=== PATIENT | female | born 1960 | race Caucasian/White ===

== ENCOUNTER 2017-06-11 13:56 | Emergency (ER) | payer BC, OTHER ==
[~2017-06-11] VITALS: Ht 167.6 cm; Wt 52.3 kg
[2017-06-11] MEDS ORDERED: MEDR4PAK PO (15:41)
[2017-06-11 15:58] VITALS: BP 102/57
== END 2017-06-11 15:59 | disposition home or self-care (01) ==
LOC: M ED 13:56
DX: L50.0 Allergic urticaria (principal); F17.210 Nicotine dependence, cigarettes, uncomplicated

== ENCOUNTER 2017-06-13 04:54 | Emergency (ER) | payer BC, OTHER ==
[~2017-06-13] VITALS: Ht 167.6 cm; Wt 52.0 kg
[~2017-06-13 04:54] MED LIST: MEDR4PAK PO
[2017-06-13] MEDS ORDERED: diphenhydrAMINE INJ 50MG/ML VIAL (J1200) IM STA (05:11)
[2017-06-13 06:03] VITALS: BP 104/54
== END 2017-06-13 06:05 | disposition home or self-care (01) ==
LOC: M ED 04:54
DX: R21 Rash and other nonspecific skin eruption (principal); F17.210 Nicotine dependence, cigarettes, uncomplicated; Z79.52 Long term (current) use of systemic steroids
CPT/HCPCS: 96372; 99283; J1200

== ENCOUNTER 2019-02-25 22:59 | Emergency (ER) | payer BC, OTHER ==
[~2019-02-25] VITALS: Ht 167.6 cm; Wt 52.3 kg
[2019-02-25] MEDS ORDERED: SOMA350T PO (23:26)
[2019-02-25] MEDS ORDERED: NAPR-837 PO (23:26)
[2019-02-25] MEDS ORDERED: diazePAM 10 MG TAB PO ONE (23:30)
[2019-02-25] MEDS ORDERED: KETOROLAC 60 MG/2 ML VIAL (J1885) IM ONE (23:30)
[2019-02-26 00:28] VITALS: BP 153/67
== END 2019-02-26 00:29 | disposition home or self-care (01) ==
LOC: M ED 22:59
DX: S39.012A Strain of muscle, fascia and tendon of lower back, initial encounter (principal); X50.1XXA Overexertion from prolonged static or awkward postures, initial encounter; Y92.099 Unspecified place in other non-institutional residence as the place of occurrence of the external cause; Y93.89 Activity, other specified; Y99.9 Unspecified external cause status
CPT/HCPCS: 96374; 99283; J1885

== ENCOUNTER → 2019-05-18 | Outpatient (CLI) | payer BC, OTHER ==
[~2019-05-18] MED LIST changes: +NAPR-837 PO; +SOMA350T PO
--- NOTE | 2019-05-18 12:41 | REP ---
MRI lumbar spine: 05/18/2019. Indication: Low back pain. Comparison: None. Technique: Short and long TR sequences of the lumbar spine were obtained without IV Gadolinium. Findings: There is straightening of the lumbar lordosis. There is dextroscoliosis of the lumbar spine with the convexity centered at L3/L4. Grade 1 retrolisthesis of L2 on L3, L3 on L4 and L4 on L5 are present. Endplate degenerative signal changes are present. No worrisome marrow signal is detected. The visualized cord is unremarkable. No significant paraspinal soft tissue abnormalities are detected. L1/L2: There is no disc herniation or significant spinal canal / neural foraminal narrowing. L2/L3: Disc and spur complex is present diffusely, most apparent anteriorly with mild spinal canal and neural foraminal narrowing. Bilateral mild facet arthropathy is present. L3/L4: Diffuse disc bulge is present with bilateral facet arthropathy and moderate bilateral lateral recess narrowing. Mild to moderate bilateral neural foraminal narrowing is present. L4/L5: Diffuse disc bulge and bilateral facet arthropathy are present with moderate to severe right and moderate left recess narrowing. There is moderate left neural foraminal narrowing. L5/S1: New mild diffuse disc bulge is present without significant spinal canal or neural foraminal narrowing. Impression: Multilevel degenerative sequelae, scoliosis and spondylolisthesis as described. There is no severe narrowing of the spinal canal. Electronically Signed by Urban Strickland DO 05/18/2019 12:32 P
== END ==
LOC: M RAD 10:27
PROVIDERS: ATTEND Internal Medicine
DX: M51.26 Other intervertebral disc displacement, lumbar region (principal); M43.16 Spondylolisthesis, lumbar region; M41.86 Other forms of scoliosis, lumbar region

== ENCOUNTER 2023-06-02 21:11 | Emergency (ER) | payer BC, OTHER ==
[~2023-06-02] VITALS: Ht 167.6 cm; Wt 43.9 kg
[2023-06-02] MEDS ORDERED: MORPHINE 4 MG/ML 1ML VIAL IV ONE (22:10)
[2023-06-02] MEDS ORDERED: NS 1,000 ML IV ONE (22:10)
[2023-06-02 22:41] LABS: BASO # 0.1 10^3/uL (0.0-0.2); BASO % 0.7 % (0.0-1.0); EOS # 0.2 10^3/uL (0.0-0.5); EOS % 1.3 % (0.0-3.0); HEMATOCRIT 34.2 % (36.0-47.0); HEMOGLOBIN 11.2 g/dl (12.0-15.5); LYMPH # 1.4 10^3/uL (1.5-5.0); LYMPH % 11.7 % (24.0-44.0); MEAN CORPUSCULAR HEMOGLOBIN 31.5 pg (27.0-33.0); MEAN CORPUSCULAR HGB CONC 32.7 g/dl (32.0-36.5); MEAN CORPUSCULAR VOLUME 96.1 fl (80.0-96.0); MONO # 0.4 10^3/uL (0.0-0.8); NEUTROPHILS # 9.7 10^3/uL (1.5-8.5); NEUTROPHILS % 82.8 % (36.0-66.0); PLATELET COUNT, AUTOMATED 290 10^3/uL (150-450); RED BLOOD COUNT 3.56 10^6/uL (4.00-5.40); WHITE BLOOD COUNT 11.7 10^3/uL (4.0-10.0)
[2023-06-02] MEDS ORDERED: ISOVUE-370 76% 100ML VIAL As Ordered ONE (23:32)
[2023-06-02 23:41] LABS: ALKALINE PHOSPHATASE 71 U/L (46-116); ALT/SGPT 15 U/L (7.0-40); AST/SGOT 17 U/L (<34); BILIRUBIN,DIRECT < 0.1 MG/DL (<0.4); BILIRUBIN,TOTAL 0.2 MG/DL (0.3-1.2); TOTAL PROTEIN 6.6 G/DL (5.7-8.2)
[2023-06-02 23:56] VITALS: BP 124/76; TEMP 98.1; O2SAT 99
== END 2023-06-03 01:41 | disposition home or self-care (01) ==
LOC: M ED 21:11
DX: K41.90 Unilateral femoral hernia, without obstruction or gangrene, not specified as recurrent (principal); F17.200 Nicotine dependence, unspecified, uncomplicated
CPT/HCPCS: 74177; 80047; 80076; 81001; 83605; 85025; 96374; 99283; Q9967

== ENCOUNTER 2023-08-29 23:56 | Day surgery (SDC) | payer BC, OTHER ==
[~2023-08-29] VITALS: Ht 167.6 cm; Wt 44.8 kg
[2023-08-30] MEDS ORDERED: MORPHINE 4 MG/ML 1ML VIAL As Ordered ONE (00:40)
[2023-08-30] MEDS ORDERED: ONDANSETRON 4MG 2ML VIAL As Ordered ONE (00:40)
[2023-08-30] MEDS: ONDANSETRON 4MG 2ML VIAL IV ONE (00:42)
[2023-08-30 00:43] LABS: BASO # 0.1 10^3/uL (0.0-0.2); BASO % 0.5 % (0.0-1.0); EOS # 0.1 10^3/uL (0.0-0.5); EOS % 0.8 % (0.0-3.0); HEMATOCRIT 35.2 % (36.0-47.0); HEMOGLOBIN 11.6 g/dl (12.0-15.5); LYMPH # 1.4 10^3/uL (1.5-5.0); LYMPH % 10.2 % (24.0-44.0); MEAN CORPUSCULAR HEMOGLOBIN 31.2 pg (27.0-33.0); MEAN CORPUSCULAR VOLUME 94.6 fl (80.0-96.0); MONO # 0.5 10^3/uL (0.0-0.8); MONO % 3.4 % (2.0-8.0); NEUTROPHILS # 11.7 10^3/uL (1.5-8.5); NEUTROPHILS % 84.7 % (36.0-66.0); PLATELET COUNT, AUTOMATED 324 10^3/uL (150-450); RED BLOOD COUNT 3.72 10^6/uL (4.00-5.40); WHITE BLOOD COUNT 13.8 10^3/uL (4.0-10.0)
[2023-08-30] MEDS: MORPHINE 4 MG/ML 1ML VIAL IV PRN (00:43)
[2023-08-30 01:03] LABS: LIPASE 32 U/L (12-53)
[2023-08-30 01:05] LABS: ALBUMIN 4.1 G/DL (3.2-5.2); ALKALINE PHOSPHATASE 68 U/L (46-116); ALT/SGPT 15 U/L (7.0-40); AST/SGOT 14 U/L (<34); BILIRUBIN,DIRECT < 0.1 MG/DL (<0.4); BILIRUBIN,TOTAL < 0.2 MG/DL (0.3-1.2); BLOOD UREA NITROGEN 22 MG/DL (9-23); CALCIUM LEVEL 9.3 MG/DL (8.3-10.6); CARBON DIOXIDE LEVEL 24 MMOL/L (20-31); CHLORIDE LEVEL 107 MMOL/L (98-107); CREATININE FOR GFR 0.61 MG/DL (0.55-1.30); GLOMERULAR FILTRATION RATE > 60.0 (>45); GLUCOSE, FASTING 127 MG/DL (74-106); POTASSIUM SERUM 4.5 MMOL/L (3.5-5.1); SODIUM LEVEL 137 MMOL/L (136-145); TOTAL PROTEIN 6.7 G/DL (5.7-8.2)
[2023-08-30] MEDS ORDERED: ISOVUE-370 76% 100ML VIAL As Ordered ONE (01:27)
[2023-08-30] MEDS ORDERED: ALEV220T22 PO (02:17)
[2023-08-30] MEDS ORDERED: HOME MED LIST COMPLETE! XX SCH (02:20)
[2023-08-30 02:38] LABS: RSV AMPLIFICATION NEGATIVE (NEGATIVE)
[2023-08-30] MEDS ORDERED: MORPHINE 4 MG/ML 1ML VIAL IV PRN (02:45)
[2023-08-30] MEDS ORDERED: KETOROLAC 30 MG/ML 1ML VIAL IV PRN (02:45)
[2023-08-30] MEDS ORDERED: ONDANSETRON 4MG 2ML VIAL IV PRN (02:45)
[2023-08-30] MEDS: LR 1,000 ML IV SCH (03:09)
[2023-08-30] MEDS: ceFAZolin SOD 1 GM in D5W MINI-BAG PLUS 50 ML IV ONE (03:09)
[2023-08-30] MEDS ORDERED: LIDOCAINE 1% SDV 30ML VIAL As Ordered ONE (07:10)
[2023-08-30] MEDS: ceFAZolin 2 GM/D5W 50 ML IV BAG As Ordered ONE (09:40)
[2023-08-30] MEDS ORDERED: LIDOCAINE 2% 100MG/5ML SDV (FOR ANES.) As Ordered ONE (09:50)
[2023-08-30] MEDS ORDERED: fentaNYL 250 MCG/5 ML INJECTION As Ordered ONE (09:50)
[2023-08-30] MEDS ORDERED: MIDAZOLAM INJ 2MG/2ML VIAL As Ordered ONE (09:50)
[2023-08-30] MEDS ORDERED: ROCURONIUM BROMIDE 50MG/5ML VIAL As Ordered ONE (09:50)
[2023-08-30] MEDS ORDERED: propofoL 200 MG/20 ML VIAL As Ordered ONE (09:50)
[2023-08-30] MEDS ORDERED: SUGAMMADEX SODIUM 500 MG/5 ML VIAL (BRIDION) As Ordered ONE (09:50)
[2023-08-30] MEDS ORDERED: ACETAMINOPHEN 1000MG 100ML IV BAG As Ordered ONE (10:05)
[2023-08-30] MEDS ORDERED: KETOROLAC 60MG 2ML VIAL As Ordered ONE (10:09)
[2023-08-30] MEDS ORDERED: fentaNYL 100 MCG/2 ML INJECTION IV PRN (11:15)
[2023-08-30] MEDS ORDERED: HYDROMORPHONE HCL 0.5 MG/ 0.5 ML SYRINGE IV PRN (11:15)
[2023-08-30] MEDS ORDERED: oxyCODONE 5MG TAB PO PRN (11:15)
[2023-08-30] MEDS ORDERED: LR 1,000 ML IV SCH (11:15)
[2023-08-30] MEDS ORDERED: HYDR-4571 PO (11:19)
[2023-08-30] MEDS: ONDANSETRON 4MG 2ML VIAL IV PRN (11:55)
[2023-08-30] MEDS: METOCLOPRAMIDE INJ 10MG/2ML VIAL IV STA (12:07)
[2023-08-30] MEDS: diphenhydrAMINE 50MG/ML VIAL IV STA (13:51)
[2023-08-30 14:46] VITALS: BP 146/65; TEMP 98.8; O2SAT 96
== END 2023-08-30 14:55 | disposition home or self-care (01) ==
LOC: M ED 08-30 00:17 → M SDC 08-30 00:18
PROVIDERS: ATTEND Surgery
DX: K41.30 Unilateral femoral hernia, with obstruction, without gangrene, not specified as recurrent (principal); F17.210 Nicotine dependence, cigarettes, uncomplicated
CPT/HCPCS: 49659; 74177; 80048; 80076; 83605; 83690; 85025; 87631; 99284; C1781; J0131; J0665; J0690; J1100; J1200; J1885; J2250; J2405; J2765; J3010; Q9967; S2900